=== PATIENT | male | born 1975 | race Caucasian/White ===

== ENCOUNTER 2017-12-20 12:54 | Emergency (ER) | payer OTHER ==
[~2017-12-20] VITALS: Ht 180.3 cm; Wt 115.7 kg
== END 2017-12-20 15:23 | disposition home or self-care (01) ==
LOC: ER 12:54
DX: S53.491A Other sprain of right elbow, initial encounter (principal); X50.0XXA Overexertion from strenuous movement or load, initial encounter; Y93.89 Activity, other specified; Y92.148 Other place in prison as the place of occurrence of the external cause; Y99.8 Other external cause status

== ENCOUNTER 2017-12-23 10:00 | Emergency (ER) | payer OTHER ==
[~2017-12-23] VITALS: Ht 180.3 cm; Wt 113.4 kg
== END 2017-12-23 10:51 | disposition home or self-care (01) ==
LOC: ER 10:00
DX: R00.2 Palpitations (principal); F06.4 Anxiety disorder due to known physiological condition

== ENCOUNTER 2019-04-01 05:27 | Emergency (ER) | payer OTHER ==
[~2019-04-01] VITALS: Ht 180.3 cm; Wt 117.9 kg
[2019-04-01] MEDS ORDERED: MOMETASONE FUROATE NASAL (05:39)
[2019-04-01] MEDS ORDERED: PROVENTIL HFA6.7 GM IH (07:31)
[2019-04-01] MEDS ORDERED: ZITHROMAX500 MG PO (07:31)
== END 2019-04-01 07:38 | disposition home or self-care (01) ==
LOC: ER 05:27
DX: R06.02 Shortness of breath (principal)